=== PATIENT | male | born 1970 | race Caucasian/White ===

== ENCOUNTER → 2020-07-08 13:31 | Outpatient (CLI) | payer OTHER, SELFPAY ==
[2020-07-08 14:14] LABS: Basophils # 0.1 K/mm3 (0-0.2); Basophils % 1.2 % (0.1-2.0); Eosinophils # 0.2 K/mm3 (0.0-0.4); Eosinophils % 2.1 % (0.1-12.0); Hematocrit 50.7 % (42.0-52.0); Hemoglobin 16.5 g/dL (14.1-18.0); Lymphocytes # 3.1 K/mm3 (0.7-4.5); Lymphocytes % 35.1 % (10-50); Mean Corpuscular HGB Conc 32.5 g/dL (31.8-35.4); Mean Corpuscular Hemoglobin 32.4 pg (27.0-31.2); Mean Corpuscular Volume 99.7 fl (80-94); Mean Platelet Volume 7.6 fl (7.4-10.4); Monocytes # 0.6 K/mm3 (0.1-1.0); Monocytes % 6.8 % (1.7-9.3); Neutrophils # 4.8 K/mm3 (1.8-7.8); Neutrophils % 54.9 % (37.0-80.0); Platelet Count 230 K/mm3 (142-424); Red Blood Count 5.09 M/mm3 (4.60-6.20); Red Cell Distribution Width 13.1 % (11.5-17.5); White Blood Count 8.8 K/mm3 (4.8-10.8)
[2020-07-08 14:56] LABS: Alanine Aminotransferase 22 U/L (12-78); Albumin Level 4.3 g/dl (3.5-5.0); Albumin/Globulin Ratio 1.3 (1.1-1.8); Alkaline Phosphatase 85 U/L (38-126); Anion Gap 12.6 mEq/L (5-15); Aspartate Amino Transferase 33 U/L (17-59); Bilirubin,Total 0.6 mg/dl (0.2-1.3); Blood Urea Nitrogen 14 mg/dl (9-20); Carbon Dioxide 28 mmol/L (22.0-30.0); Chloride 105 mmol/L (98-107); Chol/HDL Ratio 5.4 (1-3.5); Cholesterol 178 mg/dl (140-200); Estimated Glomerular Filt Rate 79 ml/min (>60); GFR (African American) 96 ML/MIN (>60); Globulin 3.4 g/dL (1.3-3.2); Glucose 97 mg/dl (74-100); HDL Cholesterol 33 mg/dl (40-60); Potassium 4.6 mmoL/L (3.5-5.1); Sodium 141 mmol/L (136-145); Total Protein,Serum 7.7 g/dl (6.3-8.2); Triglycerides 148 mg/dl (30-150); VLDL Cholesterol 30 mg/dL (0-40)
[2020-07-08 15:07] LABS: Direct LDL Cholesterol 128.54 mg/dL (100-129)
[2020-07-08 15:14] LABS: Free Thyroxine Index 2.7 ug/dL (5.93-13.13); T4 (Thyroxine) 8.5 ug/dl (5.53-11.0); Triiodothryronine (T3) Uptake 32 % (23.5-40.5)
[2020-07-08 15:48] LABS: Vitamin B12 807 pg/mL (239-931)
[2020-07-08 22:33] LABS: Thyroid Stimulating Hormone 1.27 uIU/mL (0.465-4.68)
== END ==
PROVIDERS: PCP Internal Medicine Adolescent Medicine; Visit Provider Internal Medicine Adolescent Medicine
DX: Z00.00 Encounter for general adult medical examination without abnormal findings (principal); Z13.220 Encounter for screening for lipoid disorders; G57.93 Unspecified mononeuropathy of bilateral lower limbs
CPT/HCPCS: 36415; 80053; 80061; 82607; 84436; 84443; 84479; 85025

== ENCOUNTER → 2020-10-05 13:32 | Outpatient (CLI) | payer MEDICARE, MEDICAID, SELFPAY ==
--- NOTE | 2020-10-05 14:05 | XR_ITS ---
PROCEDURE: XR KNEE LT 3V CLINICAL INDICATION: Pain COMPARISON: No exams were available for comparison FINDINGS: No fracture or dislocation. No lytic or blastic change. There is normal mineralization. Minimal osteoarthritic changes are present involving the medial compartment and patellofemoral joint. There are numerous small calcific densities at the distal aspect of the patellar tendon region. IMPRESSION: 1. Minimal osteoarthritic change. 2. Small calcific densities in the region of the distal aspect of the patellar tendon which may be due to calcific tendinitis Dictated by: Jordan Peoples MD 10/05/2020 16:54 Jordan Peoples MD in [place] 10/05/2020 16:54
--- NOTE | 2020-10-05 14:05 | XR_ITS ---
PROCEDURE: XR KNEE RT 3V CLINICAL INDICATION: OSTEOARTHRITIS Pain COMPARISON: No exams were available for comparison FINDINGS: No fracture or dislocation. No lytic or blastic change. There is normal mineralization. Minimal osteoarthritic changes are present at the medial compartment and patellofemoral joint. Other findings:None. IMPRESSION: Minimal osteoarthritic change Dictated by: Jordan Peoples MD 10/05/2020 16:55 Jordan Peoples MD in [facility] 10/05/2020 16:55
--- NOTE | 2020-10-05 14:05 | XR_ITS ---
PROCEDURE: XR SHOULDER LT MIN 2V CLINICAL INDICATION: OSTEOARTHRITIS COMPARISON: No exams were available for comparison FINDINGS: No fracture or dislocation. No lytic or blastic change. There is normal mineralization. There are osteoarthritic changes of the acromioclavicular and glenohumeral joint. There is some cortical regularity of the greater tuberosity of the humerus which may be seen with rotator cuff disease. Lucency is present in the proximal humerus and may be due to small subchondral cyst. Other findings:None. IMPRESSION: Mild osteoarthritic changes of the AC joint and glenohumeral joint with mild cortical irregularity and subchondral cystic change of the greater tuberosity which may be seen with rotator cuff disease Dictated by: Jordan Peoples MD 10/05/2020 16:56 Jordan Peoples MD in [facility] 10/05/2020 16:56
[2020-10-05 14:20] LABS: Basophils # 0.2 K/mm3 (0-0.2); Basophils % 1.8 % (0.1-2.0); Eosinophils # 0.3 K/mm3 (0.0-0.4); Eosinophils % 3.4 % (0.1-12.0); Hematocrit 51.8 % (42.0-52.0); Hemoglobin 17.2 g/dL (14.1-18.0); Lymphocytes # 3.3 K/mm3 (0.7-4.5); Lymphocytes % 33.8 % (10-50); Mean Corpuscular HGB Conc 33.3 g/dL (31.8-35.4); Mean Corpuscular Hemoglobin 32.7 pg (27.0-31.2); Mean Corpuscular Volume 98.2 fl (80-94); Monocytes # 0.5 K/mm3 (0.1-1.0); Neutrophils # 5.5 K/mm3 (1.8-7.8); Neutrophils % 55.9 % (37.0-80.0); Platelet Count 245 K/mm3 (142-424); Red Blood Count 5.27 M/mm3 (4.60-6.20); Red Cell Distribution Width 13.3 % (11.5-17.5); White Blood Count 9.9 K/mm3 (4.8-10.8)
[2020-10-05 14:50] LABS: Erythrocyte Sedimentation Rate 4 mm/hr (0-15)
[2020-10-05 16:08] LABS: Uric Acid 6.2 mg/dl (3.5-8.5)
[2020-10-07 10:16] LABS: Testosterone,Total 258 ng/dL (264-916)
== END ==
PROVIDERS: Visit Provider Internal Medicine Adolescent Medicine
DX: M17.0 Bilateral primary osteoarthritis of knee (principal); M25.512 Pain in left shoulder; E29.1 Testicular hypofunction
CPT/HCPCS: 36415; 73030; 73562; 84403; 84550; 85025; 85651

== ENCOUNTER 2021-02-12 05:35 | Inpatient (IN) | payer MEDICARE, MEDICAID, SELFPAY ==
[2021-02-12] VITALS (19 sets, daily range): BP systolic 97–168; BP diastolic 51–92; PULSE 75–111; RESP 12–24; TEMP 36.7–39.5; O2SAT 92–97; BMI 38.3; BMI 38.7
--- NOTE | 2021-02-12 05:30 | ECG_ITS ---
APPROVED REPORT Exam: Resting ECG HR:108 bpm ECG Measurements Heart Rate 108 AXES GA 146 P 41 QRSd 82 QRS 70 QT 334 T 29 QTc 447 Conclusion Sinus tachycardia Otherwise normal ECG Electronically signed by : Ariel Moralez, 02/13/2021 08:16:30
--- NOTE | 2021-02-12 05:51 | XR_ITS ---
PROCEDURE INFORMATION: Exam: XR Chest Exam date and time: 02/12/2021 5:51 AM Age: 51 years old Clinical indication: Angina pectoris; Patient HX: Chest pain TECHNIQUE: Imaging protocol: XR of the chest. Views: 2 views. COMPARISON: No relevant prior studies available. FINDINGS: Lungs: Unremarkable. No consolidation. There is no focal mass. Pleural spaces: Unremarkable. No pleural effusion. No pneumothorax. Heart/Mediastinum: Unremarkable. No cardiomegaly. Bones/joints: Unremarkable. There is no acute fracture present. IMPRESSION: No evidence for acute cardiac or pulmonary process.
[2021-02-12 06:11] LABS: Chloride 103 mmol/L (98-107); Potassium 3.9 mmoL/L (3.5-5.1); Sodium 139 mmol/L (136-145)
[2021-02-12 06:13] LABS: Alanine Aminotransferase 20 U/L (12-78); Aspartate Amino Transferase 36 U/L (17-59); Bilirubin,Unconjugated 0.3 mg/dL (0.0-1.1); Blood Urea Nitrogen 21 mg/dl (9-20); Creatinine Clearance Estimated 156 mL/min (50-200); Estimated Glomerular Filt Rate 79 ml/min (>60); GFR (African American) 96 ML/MIN (>60)
[2021-02-12 06:14] LABS: Albumin Level 4.6 g/dl (3.5-5.0); Alkaline Phosphatase 91 U/L (38-126); Anion Gap 12.9 mEq/L (5-15); Bilirubin,Direct 0.3 mg/dl (0.0-0.4); Bilirubin,Indirect 0.3 mg/dL (0.0-0.9); Bilirubin,Total 0.6 mg/dl (0.2-1.3); Calcium 9.3 mg/dl (8.4-10.2); Carbon Dioxide 27 mmol/L (22.0-30.0); Glucose 127 mg/dl (74-100); Total Protein,Serum 8.1 g/dl (6.3-8.2)
[2021-02-12 06:17] LABS: Basophils # 0.1 K/mm3 (0-0.2); Basophils % 0.5 % (0.1-2.0); Eosinophils # 0.1 K/mm3 (0.0-0.4); Hematocrit 48.6 % (42.0-52.0); Hemoglobin 16.8 g/dL (14.1-18.0); Lymphocytes # 1.2 K/mm3 (0.7-4.5); Lymphocytes % 11.8 % (10-50); Mean Corpuscular HGB Conc 34.6 g/dL (31.8-35.4); Mean Corpuscular Hemoglobin 32.6 pg (27.0-31.2); Mean Corpuscular Volume 94.4 fl (80-94); Mean Platelet Volume 7.6 fl (7.4-10.4); Monocytes # 0.2 K/mm3 (0.1-1.0); Monocytes % 1.6 % (1.7-9.3); Neutrophils # 8.8 K/mm3 (1.8-7.8); Neutrophils % 85.1 % (37.0-80.0); Platelet Count 202 K/mm3 (142-424); Red Blood Count 5.15 M/mm3 (4.60-6.20); White Blood Count 10.4 K/mm3 (4.8-10.8)
[2021-02-12 06:19] LABS: C-Reactive Protein 11.5 mg/L (0-4)
[2021-02-12 06:23] LABS: Coronavirus 19, PCR Not Detected (NotDetected); Influenza A, PCR Not Detected (NotDetected); Influenza B, PCR Not Detected (NotDetected)
[2021-02-12 06:23] LABS: Microscopic, Urine URINE MICROSCOPIC (MICROSCOPIC)
[2021-02-12 06:23] LABS: MANUAL DIFFERENTIAL MANUAL DIFFERENTIAL (MANUAL DIFF)
--- NOTE | 2021-02-12 06:23 | CT_ITS ---
PROCEDURE INFORMATION: Exam: CT Abdomen And Pelvis With Contrast Exam date and time: 02/12/2021 6:23 AM Age: 51 years old Clinical indication: Abdominal pain; Generalized; Patient HX: Abd and chest pain; Additional info: Abd pain TECHNIQUE: Imaging protocol: Computed tomography of the abdomen and pelvis with contrast. Radiation optimization: All CT scans at this facility use at least one of these dose optimization techniques: automated exposure control; mA and/or kV adjustment per patient size (includes targeted exams where dose is matched to clinical indication); or iterative reconstruction. Contrast material: ISOVUE; Contrast volume: 75 ml; Contrast route: IV; COMPARISON: No relevant prior studies available. FINDINGS: Liver: Normal. No mass. Gallbladder and bile ducts: Normal. No calcified stones. No ductal dilation. Pancreas: Normal. No ductal dilation. Spleen: Normal. No splenomegaly. Adrenal glands: Normal. No mass. Kidneys and ureters: Normal. No hydronephrosis. Stomach and bowel: Mild sigmoid and rectal constipation. Appendix: A normal appendix is seen. Intraperitoneal space: Unremarkable. No free air. No significant fluid collection. Vasculature: Unremarkable. No abdominal aortic aneurysm. Lymph nodes: Unremarkable. No enlarged lymph nodes. Urinary bladder: Unremarkable as visualized. Reproductive: Unremarkable as visualized. Bones/joints: Chronic compression fractures of L1 and L2 status post a central decompression. No acute fracture Soft tissues: Unremarkable. IMPRESSION: 1. There is no acute inflammatory process seen. There is no bowel obstruction. 2. Mild sigmoid and rectal constipation. 3. Normal appendix with no evidence for acute appendicitis. 4. Chronic compression fractures of L1 and L2 with a central decompression.
[2021-02-12 06:27] LABS: Appearance,Urine SL CLOUDY (Clear); Bilirubin,Urine Negative (Negative); Blood, Urine 3+ (Negative); Color,Urine DK YELLOW (Yellow); Glucose,Urine (UA) Negative (Negative); Ketones,Urine Negative (Negative); Leukocyte Esterase,Urine 2+ (Negative); Nitrate,Urine POSITIVE (Negative); Protein,Urine 1+ (Negative); Specific Gravity, Urine 1.025 (1.005-1.030); Urobilinogen,Urine 0.2 EU/dl (0.2)
--- NOTE | 2021-02-12 06:29 | HMH.EDFEV ---
ED Disposition Clinical Impression: Severe sepsis with acute organ dysfunction, Obesity (BMI 30-39.9), Urinary bladder neurogenic dysfunction UTI (urinary tract infection) Qualifiers: Urinary tract infection type: site unspecified Hematuria presence: without hematuria Qualified Code(s): N39.0 - Urinary tract infection, site not specified Disposition: Admitted As Inpatient Condition on Discharge: Serious - Critical Care Critical Care Time: No Attestation: On 02/12/21, the high probability of a clinically significant, sudden or life threatening deterioration of the following system(s) required my full and direct attention, intervention and personal management. The time I documented below is in addition to time spent performing reported procedures but includes the following listed in this critical care notation. Medical Decision Making - Medical Records Medical records reviewed: Yes: I reviewed the patient's medical records. - Yinka Inquiry Pt receiving controlled substance: No Vital Signs: 02/12/21 05:38 02/12/21 06:19 02/12/21 06:30 Temperature 102.9 F H Temperature Source Oral Pulse Rate 110 H 107 H Pulse Rate [Right] 111 H Respiratory Rate 24 17 19 Blood Pressure 141/77 H 132/63 Blood Pressure [Right Arm] 168/92 H Blood Pressure Mean [Right Arm] 117 Blood Pressure Source [Right Arm] Automatic Cuff Blood Pressure Position [Right Arm] Supine 02 Sat by Pulse Oximetry 95 94 L 94 L Oxygen Delivery Method Room Air 02/12/21 07:06 02/12/21 07:13 02/12/21 07:26 Temperature 103.1 F H Temperature Source Oral Pulse Rate 101 H 100 H Pulse Rate [Right] Respiratory Rate 18 16 Blood Pressure 120/53 L 117/57 L Blood Pressure [Right Arm] Blood Pressure Mean [Right Arm] Blood Pressure Source [Right Arm] Blood Pressure Position [Right Arm] 02 Sat by Pulse Oximetry 93 L 93 L Oxygen Delivery Method - Lab Data Lab results reviewed: Yes: I reviewed the patient's lab results. Lab Results 02/12/21 05:40: WBC 10.4, RBC 5.15, Hgb 16.8, Hct 48.6, MCV 94.4 H, MCH 32.6 H, MCHC 34.6, RDW 13.0, Plt Count 202, MPV 7.6, Neut % (Auto) 85.1 H, Lymph % (Auto) 11.8, [place] % (Auto) 1.6 L, Eos % (Auto) 1.0, Baso % (Auto) 0.5, Neut # (Auto) 8.8 H, Lymph # (Auto) 1.2, [place] # (Auto) 0.2, Eos # (Auto) 0.1, Baso # (Auto) 0.1, Total Counted 100, Neutrophils % (Manual) 82 H, Lymphocytes % (Manual) 16, Monocytes % (Manual) 2, Platelet Estimate Normal, RBC Morphology Normal 02/12/21 05:40: Sodium 139, Potassium 3.9, Chloride 103, Carbon Dioxide 27, Anion Gap 12.9, BUN 21 H, Creatinine 1.00, Estimated Creat Clear 156, Estimated GFR 79, Est GFR ( Amer) 96, Glucose 127 H, Calcium 9.3, Total Bilirubin 0.6, Direct Bilirubin 0.3, Conjugated Bilirubin 0.0, Indirect Bilirubin 0.3, Unconjugated Bilirubin 0.3, AST 36, ALT 20, Alkaline Phosphatase 91, Troponin I < 0.01, C-Reactive Protein 11.5 H, Total Protein 8.1, Albumin 4.6 02/12/21 05:40: Lactate 2.7 H 02/12/21 05:40: ESR 7 02/12/21 05:40: Procalcitonin 0.097 02/12/21 06:18: Urine Color Dk yellow, Urine Appearance Sl cloudy, Urine pH 6.0, Ur Specific [place] 1.025, Urine Protein 1+, Urine Glucose (UA) Negative, Urine Ketones Negative, Urine Blood 3+, Urine Nitrate Positive, Urine Bilirubin Negative, Urine Urobilinogen 0.2, Ur Leukocyte Esterase 2+ A, Urine RBC Tntc, Urine WBC 50-100, Ur Squamous Epith Cells 10-20, Urine Bacteria 2+ Result diagrams: 02/12/21 05:40 02/12/21 05:40 Orders (Tests/Meds): ED MEDICATIONS Generic Name Dose Route Start Last Admin Trade Name Freq PRN Reason Stop Dose Admin Sodium Chloride 1,000 mls @ 999 mls/hr 02/12/21 06:00 02/12/21 06:20 Sod Chlor 0.9% 1000ml Bag IV 02/12/21 07:00 999 mls/hr .Q1H1M [place] Administration Discontinued Medications Generic Name Dose Route Start Last Admin Trade Name Freq PRN Reason Stop Dose Admin Acetaminophen 1,000 mg 02/12/21 05:51 02/12/21 06:20 Acetaminophen 500mg T
[2021-02-12 06:42] LABS: Lactic Acid 2.7 mmol/L (0.7-2.1); Troponin I < 0.01 ng/ml (0.00-0.034)
[2021-02-12 06:50] LABS: Erythrocyte Sedimentation Rate 7 mm/hr (0-15)
[2021-02-12 06:50] LABS: Bacteria,Urine 2+ /lpf; RBC,Urine TNTC #/hpf (0-3); WBC,Urine 50-100 #/hpf (0-3)
[2021-02-12 06:59] LABS: Lymphocytes % 16 % (10-50); Monocytes % 2 % (2-9); Neutrophils % 82 % (42-76); Platelet Estimate Normal; RBC Morphology Normal; Total Cells Counted 100
--- NOTE | 2021-02-12 07:25 | PC.NURSE ---
Pt to be admitted to Dr Hawkins per Dr Schulz. Spoke with [employer] Mechanic, Ej, she will be getting bed assignment
[2021-02-12 07:26] LABS: Procalcitonin 0.097 ng/mL (0.0-2.0)
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
--- NOTE | 2021-02-12 08:04 | PC.NURSE ---
PHARMACY NOTIFIED OF ANTIBIOTIC ORDERED NOT IN THE OMNICELL
--- NOTE | 2021-02-12 08:33 | PC.NURSE ---
REPORT CALLED TO FLOOR
--- NOTE | 2021-02-12 08:50 | P.CONPHA_ITS ---
[facility] Pharmacy VTE Monitoring - Patient Demographics Admission date: 02/12/21 Report Date: 02/12/21 Time: 08:50 Allergies/Adverse Reactions: Patient Allergies Penicillins Allergy (Unknown, Verified 12/07/20 15:33) Height: 1.8 m Weight: 124.738 kg Patient Problems: Current Active Problems UTI (urinary tract infection) (Acute) Severe sepsis with acute organ dysfunction (Acute) Obesity (BMI 30-39.9) (Chronic) Urinary bladder neurogenic dysfunction (Chronic) History of spinal cord injury (Chronic) Severe anxiety (Chronic) Chronic pain after traumatic injury (Chronic) - VTE Risk Labs: VTE Related Lab Results Hgb 16.8 g/dL (14.1-18.0) 02/12/21 05:40 Hct 48.6 % (42.0-52.0) 02/12/21 05:40 Plt Count 202 K/mm3 (142-424) 02/12/21 05:40 BUN 21 mg/dl (9-20) H 02/12/21 05:40 Creatinine 1.00 mg/dl (0.66-1.25) 02/12/21 05:40 Estimated Creat Clear 156 mL/min (50-200) 02/12/21 05:40 - Prophylaxis VTE Prophylaxis Ordered?: Yes Types of VTE Prophylaxis: TEDS Knee High Location of Applied Device: Bilateral Lower Extremeties
[2021-02-12 09:48] LABS: Troponin I 0.01 ng/ml (0.00-0.034)
[2021-02-12 09:49] LABS: Reflex Lactic Add Lactic Reflex
[2021-02-12 10:22] LABS: Lactic Acid Follow Up (RFLX 1) 2.4 mmol/L (0.7-2.1)
--- NOTE | 2021-02-12 11:38 | HMH.PHAINT ---
MEDICATION RECONCILIATION COMPLETED ON PATIENT USING EXTERNAL FILL HISTORY FROM PHARMACY, CLAUDIA REPORT, AND CALLING PATIENT'S PHARMACY IN [place] TO CLARIFY SUBOXONE DOSE. -JUS STREETERD
[2021-02-12 12:05] LABS: Reflex Lactic (2 hrs) Add Lactic Reflex
[2021-02-12 13:09] LABS: Lactic Acid Follow up (RFLX 2) 2.5 mmol/L (0.7-2.1)
--- NOTE | 2021-02-12 18:03 | PC.NURSE ---
PT IS RESTING IN BED. NO COMPLAINTS OF DISCOMFORT. PT SIGNED AN OFF UNIT CONSENT TO LEAVE THE FLOOR B/C HE STATED HE WAS TIRED OF SITTING IN THE ROOM. PT IS A SMOKER AND WAS OFFERED A NICOTINE PATCH AND HE REFUSED. PT ASKED IF HE COULD BE DISCHARGED AFTER HIS AFTERNOON ANTIBIOTIC B/C HE WAS FEELING 100% BETTER AND HE JUST DID NOT LIKE STAYING IN THE HOSPITAL. NOTIFIED AND HE STATED HE WANTED PT TO HAVE 24 HOURS OF IV ANTIBIOTICS AND IF HE WOULD BE OKAY WITH DISCHARGING HIM IN THE MORNING IF HE STILL FEELS GOOD. PT WAS AGREEABLE TO STAYING TILL IN THE MORNING. PT HAS TOLERATED TAKING A SHOWER THIS SHIFT. AFEBRILE SINCE ARRIVING TO THE FLOOR. LUNG SOUNDS CLEAR. ABDOMEN SOFT/NON TENDER WITH ACTIVE BOWEL SOUNDS. VSS. WILL CONTINUE TO MONITOR.
--- NOTE | 2021-02-13 03:27 | PC.NURSE ---
shift summary pt is alert and oriented X4. lung sounds are clear with sats maintained 90% or above on room air. pt voids per dupree urine is clear and yellow in color. pt is able to ambulate around his room unassisted. pt denies any pain, nausea, vomiting, or diarrhea. pt has had no acute changes will continue to monitor.
[2021-02-13 04:00] VITALS: BP 112/56; PULSE 74; RESP 18; TEMP 36.9; O2SAT 96
[2021-02-13 06:41] LABS: Basophils # 0.1 K/mm3 (0-0.2); Basophils % 0.7 % (0.1-2.0); Eosinophils # 0.1 K/mm3 (0.0-0.4); Hematocrit 43.7 % (42.0-52.0); Hemoglobin 14.8 g/dL (14.1-18.0); Lymphocytes # 0.9 K/mm3 (0.7-4.5); Lymphocytes % 8.7 % (10-50); Mean Corpuscular HGB Conc 33.9 g/dL (31.8-35.4); Mean Corpuscular Hemoglobin 32.6 pg (27.0-31.2); Monocytes # 0.7 K/mm3 (0.1-1.0); Neutrophils # 8.4 K/mm3 (1.8-7.8); Neutrophils % 82.6 % (37.0-80.0); Platelet Count 145 K/mm3 (142-424); Red Blood Count 4.55 M/mm3 (4.60-6.20); White Blood Count 10.1 K/mm3 (4.8-10.8)
[2021-02-13 06:54] LABS: Chloride 108 mmol/L (98-107); Sodium 138 mmol/L (136-145)
[2021-02-13 06:57] LABS: Blood Urea Nitrogen 14 mg/dl (9-20); Creatinine Clearance Estimated 197 mL/min (50-200); Estimated Glomerular Filt Rate 102 ml/min (>60); GFR (African American) 124 ML/MIN (>60)
[2021-02-13 06:58] LABS: Calcium 8.4 mg/dl (8.4-10.2); Carbon Dioxide 26 mmol/L (22.0-30.0); Glucose 104 mg/dl (74-100)
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
[2021-02-13 08:00] VITALS: BP 131/79; PULSE 76; RESP 18; TEMP 36.9; O2SAT 98
== END 2021-02-13 09:40 | disposition home or self-care (01) | DRG 871 ==
LOC: ER 07:30 → 2ND 07:39
PROVIDERS: Admitting Provider Internal Medicine Adolescent Medicine; Emergency Provider Emergency Medicine; PCP Internal Medicine Adolescent Medicine; Visit Provider Internal Medicine Adolescent Medicine
DX: A41.9 Sepsis, unspecified organism (principal); R65.21 Severe sepsis with septic shock; T83.518A Infection and inflammatory reaction due to other urinary catheter, initial encounter; N39.0 Urinary tract infection, site not specified; F17.210 Nicotine dependence, cigarettes, uncomplicated; F41.9 Anxiety disorder, unspecified; F19.11 Other psychoactive substance abuse, in remission; G89.4 Chronic pain syndrome; E66.9 Obesity, unspecified; Z68.38 Body mass index [BMI] 38.0-38.9, adult; N31.9 Neuromuscular dysfunction of bladder, unspecified; Z87.440 Personal history of urinary (tract) infections; Y84.6 Urinary catheterization as the cause of abnormal reaction of the patient, or of later complication, without mention of misadventure at the time of the procedure; R33.9 Retention of urine, unspecified
CPT/HCPCS: 36415; 71046; 74177; 80048; 80076; 81001; 83605; 84145; 84484; 85007; 85025; 85651; 86140; 87040; 87077; 87086; 87088; 87186; 93005; 96365; 96366; 96375; 99284; J2185; Q9967; U0003

== ENCOUNTER → 2021-03-21 13:14 | Outpatient (POV) | payer MEDICARE, MEDICAID, SELFPAY ==
[2021-03-21 13:54] VITALS: BP 141/84; PULSE 81; RESP 18; O2SAT 95; BMI 37.6
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
== END ==
PROVIDERS: PCP Internal Medicine Adolescent Medicine; Visit Provider Clinical Nurse Specialist Family Health
DX: M47.896 Other spondylosis, lumbar region (principal); M54.16 Radiculopathy, lumbar region; S32.000A Wedge compression fracture of unspecified lumbar vertebra, initial encounter for closed fracture
CPT/HCPCS: 99202; G0463

== ENCOUNTER 2021-04-01 10:45 | Day surgery (SDC) | payer MEDICARE, MEDICAID, SELFPAY ==
[2021-04-01 10:53] VITALS: BP 137/77; PULSE 69; RESP 20; TEMP 36.6; O2SAT 98; BMI 36.9
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
[2021-04-01 11:12] VITALS: BP 143/71; PULSE 69; RESP 18; O2SAT 96
[2021-04-01 11:16] VITALS: BP 139/81; PULSE 70; RESP 18; O2SAT 97
[2021-04-01 11:32] VITALS: BP 119/71; PULSE 63; RESP 20; O2SAT 98
== END 2021-04-01 11:33 | disposition home or self-care (01) ==
LOC: SC.PAINP 10:45
PROVIDERS: PCP Internal Medicine Adolescent Medicine; Visit Provider Anesthesiology Pain Medicine
DX: M51.16 Intervertebral disc disorders with radiculopathy, lumbar region (principal); F41.9 Anxiety disorder, unspecified; Z72.0 Tobacco use; F32.9 Major depressive disorder, single episode, unspecified
CPT/HCPCS: 62323; J1040; Q9966

== ENCOUNTER → 2021-05-05 13:23 | Outpatient (POV) | payer MEDICARE, MEDICAID, SELFPAY ==
[2021-05-05 13:34] VITALS: BP 137/89; PULSE 72; RESP 18; O2SAT 93; BMI 37.6
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
== END ==
PROVIDERS: Visit Provider Clinical Nurse Specialist Family Health
DX: M51.16 Intervertebral disc disorders with radiculopathy, lumbar region (principal)
CPT/HCPCS: 99212; G0463

== ENCOUNTER 2021-05-12 18:43 | Emergency (ER) | payer MEDICARE, MEDICAID, SELFPAY ==
[2021-05-12 20:00] VITALS: BP 143/88; PULSE 77; RESP 18; TEMP 36.9; O2SAT 95; BMI 37.6
--- NOTE | 2021-05-12 20:42 | HMH.EDUTC ---
[facility] [place] Clinical Impression: Encounter for laboratory testing for COVID-19 virus Disposition: Home, Self-Care Condition on Discharge: Good Instructions: DI for COVID-19 (Suspected or Confirmed ), Preventing the Spread of Coronavirus Discharge Instructions Additional Instructions: *Monitor Temp, Over the counter Motrin or Tylenol as directed/as needed Tylenol every 4 hours and Motrin every 6 hours (as long as your family doctor has told you that you can take it) for fever or pain. and straight to ER if unable to lower temp less than 101.0 after medication given Follow up IMMEDIATELY for new or worsening symptoms or no Noticeable improvement over the next 48-72 hours. 911 for difficulty breathing or swallowing You were tested for today for COVID19 your test result should be back in the next 24-48 hours, you was given handout on [facility] portal where you can review your results if you do not have internet access you may call the [facility] You was given a handout with instructions for Self Quarantine and Self isolation for while you wait on test results and what to do if they are positive If you are positive the Health Dept will be contacting you also Make sure to take your Vitamins Vit. C Vit D and Zinc if you can take them Referrals: Ariel Moralez MD [Primary Care Provider] - As needed Time of Disposition: 20:45 Medical Decision Making - Yinka Inquiry Pt receiving controlled substance: No Yinka was queried for this patient: No Vital Signs: 05/12/21 20:00 Temperature 98.4 F Temperature Source Oral Pulse Rate [Right Brachial] 77 Respiratory Rate 18 Blood Pressure [Right Arm] 143/88 H Blood Pressure Mean [Right Arm] 106 Blood Pressure Source [Right Arm] Automatic Cuff Blood Pressure Position [Right Arm] Sitting 02 Sat by Pulse Oximetry 95 Oxygen Delivery Method Room Air Orders (Tests/Meds): ORDERS Category Date Time Status Covid-19 Nasal PCR ([facility]) Routine Lab 05/12/21 20:37 Ordered [facility] [place] - General Stated complaint: covid test Time Seen by Provider: 05/12/21 20:42 Mode of Arrival: Ambulatory Source of Information: Patient Limitations: No Limitations Description of Symptoms (Recalled from Triage Doc. by RN): COVID TEST D/T EXPOSURE HEENT Symptoms (Recalled from RN notes): No Resp Symptoms (Recalled from RN notes): No Skin Symptoms (Recalled from RN notes): No MS Symptoms (Recalled from RN notes): No Functional Status (Recalled from RN notes): WNL - History of Present Illness Provider Complaint: Patient states that he has been exposed to COVID and several people in the house has COVID states that they wanted to get tested states that he tested positive earlier in the week but doesnt think its right - Related Data Home Medications Medication Instructions Recorded Confirmed buspirone 15 mg tablet 15 mg PO DAILY 12/07/20 04/01/21 clonazepam 0.5 mg tablet 1 mg PO HS 12/07/20 04/01/21 paroxetine HCl 20 mg tablet 20 mg PO DAILY 12/07/20 04/01/21 Trazodone HCl [Desyrel 50mg tablet] 150 mg PO HS 04/01/21 04/01/21 levoFLOXacin [Levofloxacin 750MG 750 mg PO DAILY 04/01/21 04/01/21 Tablet*] Allergies Allergy/AdvReac Type Severity Reaction Status Date / Time Penicillins Allergy Unknown Verified 04/01/21 11:05 - Worker's Comp Is this a Worker's Comp case?: No [facility] History - Hepatitis A Screen Drug use history?: No High risk sexual behaviors?: No History of sexually transmitted infection?: No Currently employed?: No Childcare worker?: No Do you have indoor plumbing?: Yes Do you have electricity?: Yes Attestation statement:: This patient has been screened for Hepatitis A risk factors. I have reviewed the patient's past medical history: Yes Medical History: Reports:: Anxiety Denies:: Cancer, Diabetes Mellitus Type 1, Diabetes Mellitus Type 2, Internal Pacemaker, MRSA, Seizures Other Medical History: Denies: Blood Transfusion Reaction Laterality Cases: Left: Arth
[2021-05-12 20:50] VITALS: BP 143/88; PULSE 77; RESP 18; TEMP 36.9; O2SAT 95
== END 2021-05-12 20:57 | disposition home or self-care (01) ==
PROVIDERS: Emergency Provider Nurse Practitioner; PCP Internal Medicine Adolescent Medicine
DX: Z20.822 Contact with and (suspected) exposure to COVID-19 (principal); R03.0 Elevated blood-pressure reading, without diagnosis of hypertension; F41.9 Anxiety disorder, unspecified; F17.210 Nicotine dependence, cigarettes, uncomplicated
CPT/HCPCS: G0463; 99202; U0003

== ENCOUNTER → 2021-05-24 14:28 | Outpatient (CLI) | payer MEDICARE, MEDICAID, SELFPAY | PROVIDERS: PCP Internal Medicine Adolescent Medicine; Visit Provider Nurse Practitioner | DX: Z20.822 Contact with and (suspected) exposure to COVID-19 (principal); U07.1 COVID-19 | CPT/HCPCS: C9803; U0003; U0005 ==

== ENCOUNTER → 2021-06-09 16:10 | Outpatient (CLI) | payer MEDICARE, MEDICAID, SELFPAY ==
[2021-06-09 17:30] LABS: Hemoglobin A1C 5.4 % (4.0-6.0)
[2021-06-09 18:01] LABS: Chloride 102 mmol/L (98-107); Potassium 4.2 mmoL/L (3.5-5.1); Sodium 139 mmol/L (136-145)
[2021-06-09 18:03] LABS: Blood Urea Nitrogen 12 mg/dl (9-20); Estimated Glomerular Filt Rate 119 ml/min (>60); GFR (African American) 144 ML/MIN (>60)
[2021-06-09 18:04] LABS: Anion Gap 11.2 mEq/L (5-15); Calcium 9.5 mg/dl (8.4-10.2); Carbon Dioxide 30 mmol/L (22.0-30.0); Chol/HDL Ratio 5.8 (1-3.5); Cholesterol 173 mg/dl (140-200); Glucose 79 mg/dl (74-100); HDL Cholesterol 30 mg/dl (40-60); Triglycerides 213 mg/dl (30-150); VLDL Cholesterol 43 mg/dL (0-40)
[2021-06-09 18:15] LABS: Direct LDL Cholesterol 108.51 mg/dL (100-129)
== END ==
PROVIDERS: Visit Provider Internal Medicine Adolescent Medicine
DX: M17.0 Bilateral primary osteoarthritis of knee (principal); Z00.00 Encounter for general adult medical examination without abnormal findings; E66.9 Obesity, unspecified; Z68.38 Body mass index [BMI] 38.0-38.9, adult; Z79.899 Other long term (current) drug therapy
CPT/HCPCS: 36415; 80048; 80061; 83036

== ENCOUNTER 2021-06-28 14:14 | Emergency (ER) | payer MEDICARE, MEDICAID, SELFPAY ==
[2021-06-28 14:35] VITALS: BP 153/92; PULSE 91; RESP 18; O2SAT 95
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
[2021-06-28 14:47] VITALS: BP 149/94; PULSE 96; RESP 18; TEMP 37; O2SAT 97; BMI 37.6
[2021-06-28 15:30] LABS: Microscopic, Urine URINE MICROSCOPIC (MICROSCOPIC)
[2021-06-28 15:36] LABS: Appearance,Urine CLOUDY (Clear); Blood, Urine 3+ (Negative); Color,Urine RED (Yellow); Glucose,Urine (UA) Negative (Negative); Ketones,Urine 1+ (Negative); Leukocyte Esterase,Urine 2+ (Negative); Nitrate,Urine POSITIVE (Negative); Protein,Urine 3+ (Negative)
[2021-06-28 15:38] LABS: Bilirubin,Urine 1+ (Negative)
[2021-06-28 15:47] LABS: Bacteria,Urine 1+ /lpf; RBC,Urine TNTC #/hpf (0-3); Squamous Epithelial Cell,Urine Occasional #/hpf (0-5)
[2021-06-28 16:25] VITALS: BP 136/94; PULSE 78; RESP 18; TEMP 36.9; O2SAT 94
== END 2021-06-28 16:27 | disposition home or self-care (01) ==
PROVIDERS: Emergency Provider Student in an Organized Health Care Education/Training Program; PCP Internal Medicine Adolescent Medicine
DX: N31.9 Neuromuscular dysfunction of bladder, unspecified (principal); G89.21 Chronic pain due to trauma; F41.9 Anxiety disorder, unspecified; F17.210 Nicotine dependence, cigarettes, uncomplicated
CPT/HCPCS: 81001; 87086; 87088; 87186; 99282

== ENCOUNTER → 2021-08-25 11:56 | Outpatient (CLI) | payer MEDICARE, MEDICAID, SELFPAY ==
[2021-08-25 12:34] LABS: Basophils # 0.2 K/mm3 (0-0.2); Basophils % 2.1 % (0.1-2.0); Eosinophils # 0.3 K/mm3 (0.0-0.4); Eosinophils % 2.6 % (0.1-12.0); Hemoglobin 17.7 g/dL (14.1-18.0); Lymphocytes # 3.3 K/mm3 (0.7-4.5); Lymphocytes % 32.7 % (10-50); Mean Corpuscular HGB Conc 32.8 g/dL (31.8-35.4); Mean Corpuscular Hemoglobin 33.2 pg (27.0-31.2); Mean Corpuscular Volume 101.3 fl (80-94); Mean Platelet Volume 7.9 fl (7.4-10.4); Monocytes # 0.6 K/mm3 (0.1-1.0); Monocytes % 6.3 % (1.7-9.3); Neutrophils # 5.6 K/mm3 (1.8-7.8); Neutrophils % 56.3 % (37.0-80.0); Platelet Count 275 K/mm3 (142-424); Red Blood Count 5.33 M/mm3 (4.60-6.20); Red Cell Distribution Width 13.1 % (11.5-17.5)
[2021-08-25 13:26] LABS: Chloride 105 mmol/L (98-107); Sodium 140 mmol/L (136-145)
[2021-08-25 13:27] LABS: Potassium 4.1 mmoL/L (3.5-5.1)
[2021-08-25 13:29] LABS: Alanine Aminotransferase 21 U/L (12-78); Albumin Level 4.3 g/dl (3.5-5.0); Albumin/Globulin Ratio 1.5 (1.1-1.8); Alkaline Phosphatase 71 U/L (38-126); Anion Gap 12.1 mEq/L (5-15); Aspartate Amino Transferase 27 U/L (17-59); Bilirubin,Total 0.3 mg/dl (0.2-1.3); Blood Urea Nitrogen 17 mg/dl (9-20); Carbon Dioxide 27 mmol/L (22.0-30.0); Estimated Glomerular Filt Rate 89 ml/min (>60); GFR (African American) 108 ML/MIN (>60); Globulin 2.8 g/dL (1.3-3.2); Total Protein,Serum 7.1 g/dl (6.3-8.2)
[2021-08-25 13:30] LABS: Calcium 9.6 mg/dl (8.4-10.2); Glucose 147 mg/dl (74-100)
[2021-08-25 13:52] LABS: Free Thyroxine Index 2.8 ug/dL (5.93-13.13); T4 (Thyroxine) 8.3 ug/dl (5.53-11.0); Triiodothryronine (T3) Uptake 34 % (23.5-40.5)
[2021-08-25 14:05] LABS: Ferritin 53.6 ng/ml (17.9-464); Thyroid Stimulating Hormone 1.38 uIU/mL (0.465-4.68)
[2021-08-25 22:22] LABS: Vitamin B12 726 pg/mL (239-931)
[2021-08-25 23:34] LABS: Hemoglobin A1C 5.1 % (4.0-6.0)
[2021-08-30 05:22] LABS: Testosterone, Total, LC/MS 493.8 ng/dL (264.0-916.0); Testosterone,Free 9.8 pg/mL (7.2-24.0)
== END ==
PROVIDERS: Visit Provider Internal Medicine Adolescent Medicine
DX: G57.93 Unspecified mononeuropathy of bilateral lower limbs (principal); G25.81 Restless legs syndrome; R53.81 Other malaise; E55.9 Vitamin D deficiency, unspecified; R73.9 Hyperglycemia, unspecified; Z79.899 Other long term (current) drug therapy
CPT/HCPCS: 36415; 80053; 82306; 82607; 82728; 83036; 84402; 84403; 84436; 84443; 84479; 85025

== ENCOUNTER → 2021-12-14 17:32 | Outpatient (CLI) | payer MEDICARE, MEDICAID, SELFPAY ==
--- NOTE | 2021-12-14 17:46 | XR_ITS ---
PROCEDURE INFORMATION: Exam: XR Left Knee Exam date and time: 12/14/2021 5:42 PM Age: 51 years old Clinical indication: Pain; Knee; Left; Additional info: Left knee pain , osteoarthritis of left knee TECHNIQUE: Imaging protocol: XR Left knee. Views: 3 views. COMPARISON: CR XR KNEE LT 3V 10/05/2020 2:18 PM FINDINGS: Bones/joints: Redemonstration of multiple bony fragments in the lower patellar tendon. Soft tissues: Moderate soft tissue edema in the anterior lower thigh. IMPRESSION: 1. Redemonstration of multiple bony fragments in the lower patellar tendon. This is likely a sequela of [place]. In some patients, this can be symptomatic. 2. Moderate soft tissue edema in the anterior lower thigh.
--- NOTE | 2021-12-14 17:47 | XR_ITS ---
PROCEDURE INFORMATION: Exam: XR Right Knee Exam date and time: 12/14/2021 5:40 PM Age: 51 years old Clinical indication: Pain; Knee; Right; Additional info: Right knee pain , osteoarthritis of right knee TECHNIQUE: Imaging protocol: XR Right knee. Views: 3 views. COMPARISON: CR XR KNEE RT 3V 10/05/2020 2:18 PM FINDINGS: Bones/joints: No acute fracture or dislocation. Soft tissues: Normal. IMPRESSION: No acute fracture or dislocation.
== END ==
PROVIDERS: PCP Internal Medicine Adolescent Medicine; Visit Provider Internal Medicine Adolescent Medicine
DX: M17.0 Bilateral primary osteoarthritis of knee (principal)
CPT/HCPCS: 73562